=== PATIENT | female | born 2000 ===

== ENCOUNTER → 2023-11-18 | Outpatient (CLI) | payer BC ==
[2023-11-20 09:00] LABS: HIV 1,2 COMBO ANTIGEN/ANTIBODY Negative (Negative)
[2023-11-20 10:36] LABS: HBV CORE ANTIBODIES,TOTAL Negative (Negative)
[2023-11-20 12:32] LABS: HEPATITIS B SURFACE ANTIGEN Negative (Negative)
[2023-11-25 13:31] LABS: HEPATITIS C AB CIA INTERP Negative (Negative); HEPATITIS C ANTIBODY CIA INDEX 0.08 IV
== END ==
LOC: LAB SHORT 12:30 → LAB 12:30
PROVIDERS: Physician Assistant
DX: Z20.9 Contact with and (suspected) exposure to unspecified communicable disease (principal); W46.0XXA Contact with hypodermic needle, initial encounter
CPT/HCPCS: 86704; 86803; 87340; 87389